=== PATIENT | female | born 1960 | race Two or more races ===

== ENCOUNTER → 2016-12-09 08:38 | Outpatient (CLI) | payer SELFPAY | END | disposition home or self-care (01) | LOC: D.US 12-07 08:00 | DX: K75.9 Inflammatory liver disease, unspecified (principal) ==

== ENCOUNTER 2019-01-01 11:17 | Outpatient (CLI) | payer MEDICARE ==
[~2019-01-01] VITALS: Ht 157.5 cm; Wt 70.0 kg
--- NOTE | ~2019-01-01 | HEMODYNAMI ---
PATIENT:JESSA ATKINS MEDICAL RECORD: [id number] : 60 LOCATION:DEE DEE AyoubCL03 ADMISSION DATE: 01/01/19 Generatedon:01/01/201914:32 Patient name: JESSA ATKINS Patient #: [id number] SSN: [id number] : 1960 Date of study: 01/01/2019 Page: Of Hemodynamic Procedure Report Patient Data Patient Demographics Procedure consent was obtained First Name: JESSA Gender: Female Last Name: WILBERT : 1960 [facility] Initial: Gustavo KEVIN Age: 58 year(s) Patient #: [id number] Race: Other SSN: [id number] Additional ID: [id number] Contact details Address: [address] [place] [address] State: [place] City: [place] Zip code: [address] Admission Admission Data Admission Date: 01/01/2019 Admission Time: 11:17 Arrival Date: 01/01/2019 Arrival Time: 13:00 Admit Source: Other Insurance Payor: Medicare Room #: D.CL03 Lab Results Lab Result Date: 01/01/2019 Lab Result Time: 0:00 Biochemistry Name Units Result Min Max BUN mg/dl 14 --(--*-)-- 7 18 Creatinine mg/dl 0.8 --(-*--)-- 0.6 1.3 eGFR ml/min 78 *-(----)-- 90 120 NONAFRICAN CBC Name Units Result Min Max Hemoglobin g/dl 13.6 --(*---)-- 13.5 17.5 Procedure Procedure Types Cath Procedure Diagnostic Procedure LHC LH w/Coronaries FFR/IVUS FFR Initial Sedation Charges Moderate Sedation up to 15 minutes Procedure Description Procedure Date Procedure Date: 01/01/2019 Procedure Start Time: 14:12 Procedure End Time: 14:25 Procedure Staff Name Function Randal Mata MD Performing Physician Yadira Miller RT Monitor Eleazar Sevilla RT Scrub Cee Astorga RN Nurse Procedure Data Cath Procedure Fluoroscopy Diagnostic fluoroscopy Total fluoroscopy Time: 2.5 time: 2.5 min min Diagnostic fluoroscopy Total fluoroscopy dose: 340 dose: 340 mGy mGy Contrast Material Contrast Material Type Amount (ml) Isovue 300 81 Entry Location Entry Primary Successful Side Size Upsize Upsize Entry Closure Succes sful Closure Location (Fr) 1 (Fr) 2 (Fr) Remarks Device Remarks Femoral Right 5 Fr 6 Fr Exoseal artery Short Estimated blood loss: 5 ml Diagnostic catheters Device Type Used For End Catheter Placement MULTIPACK JL 4.0 5Fr Left Coronary catheter Angiography MULTIPACK 3DRC 5Fr Right Coronary catheter Angiography MULTIPACK Pigtail 5 Fr LV Angiography catheter Procedure Complications No complications Procedure Medications Medication Administration Route Dosage Oxygen NC 2 l/min Lidocaine 2% added to field 20 Heparin Flush Bag added to field 2 bags (1000units/500ml NS) 0.9% NaCl I.V. 100 ml/hr Versed I.V. 1 mg Fentanyl I.V. 50 mcg Heparin Bolus I.V. 3000 units Versed I.V. 1 mg Fentanyl I.V. 25 mcg Hemodynamics Rest HGB: 13.6 (g/dl) Heart Rate: 58 (bpm) Pressure Samples Time Site Value (mmHg) Purpose Heart Use Rate(bpm) 14:16 LV 101/4,4 Snapshot 70 Gradients Valve Time Site Site Mean SEP/DFP Peak To Heart Use 1 2 (mmHg) (sec/min) Peak Rate (mmHg) (bpm) Aortic 14:17 LV AO 73 Snapshots Pre Cath Intra NCS Post Cath Vital Signs Time Heart Resp SPO2 etCO2 NIBP Rhythm Pain Sedation Rate (ipm) (%) (mmHg) (mmHg) Status Level (bpm) 13:54:54 54 31.5 123/66(85) NSR 0 (11) 10(A) , No pain 13:59:04 65 15 98 31.5 107/68(90) NSR 0 (11) 10(A) , No pain 14:03:08 63 18 96 34.5 99/70(77) NSR 0 (11) 10(A) , No pain 14:07:09 67 12 91 36.8 113/67(79) NSR 0 (11) 10(A) , No pain 14:11:15 69 13 93 36.8 95/73(79) NSR 0 (11) 9(A) , No pain 14:15:15 70 17 93 35.3 106/69(81) NSR 0 (11) 9(A) , No pain 14:19:23 70 19 94 34.5 100/60(78) NSR 0 (11) 9(A) , No pain 14:23:23 72 24 95 32.3 110/74(98) NSR 0 (11) 10(A) , No pain 14:29:50 68 31 96 31.5 113/73(91) NSR 0 (11) 10(A) , No pain Medications Time Medication Route Dose Verified Delivered Reason Notes E ffectiveness by by 13:56:25 Oxygen NC 2 Cee Cee used for l/min Rizwan Rizwan street car inspector RN 13:56:36 Lidocaine 2% added 20ml Cee Cee for local to vial Rizwan Rizwan anesthetic field RN RN 13:56:45 Heparin Flush added 2 Cee Cee used for Bag to bags Rizwan Rizwan procedure (1000units/500ml field RN RN NS) 13:56:57 0.9% NaCl I.V. 100 Cee Cee used for ml/hr Rizwan Rizwan street car inspector RN 14:09:59 Versed I.V. 1 mg Randal Cee for [place] Rizwan sedation RN 14:10:07 Fentanyl I.V. 50 Randal Cee for mcg [place] Rizwan sedation RN 14:12:38 Versed I.V. 1 mg Randal Cee for Benton Rizwan sedation MD LEAL 14:13:52 Fentanyl I.V. 25 Randal Cee for mcg Benton Rizwan sedation RN 14:17:26 Heparin Bolus I.V. 3000 Randal Cee verfiied units [facility] with dr. MD LEAL noel Procedure Log Time Note 13:35:44 Eleazar Sevilla RT(R) sent for patient. Start room use. 13:45:21 Diagnostic Cath Status : Elective 13:48:01 Lab Result : Hemoglobin 13.6 g/dl 13:48:01 Lab Result : BUN 14 mg/dl 13:48:01 Lab Result : Creatinine 0.8 mg/dl 13:48:01 Lab Result : eGFR NONAFRICAN 78 ml/min 13:48:42 Procedure Status Elective Heart Cath (OP). 13:48:50 Time tracking: Regular hours (M-F 7:00 - 5:00) 13:48:54 Plan of Care:Hemodynamics will remain stable., Cardiac rhythm will remain stable., Comfort level will be maintained., Respiratory function will remain adequate., Patient/ family verbilizes understanding of procedure., Procedure tolerated without complication., Recovers from procedure without complications.. 13:48:58 Patient received from Pre/Post Procedure Room to CCL 2 Alert and oriented. Tansferred to table in Supine position. 13:49:01 Signed procedure consent form obtained from patient. 13:49:02 Warm blankets applied, and román hugger turned on for patient comfort. 13:49:03 Correct patient and procedure confirmed by team. 13:49:03 ECG and BP/O2 sat monitors applied to patient. 13:50:10 Admit Source: Other 13:50:12 Arrival Date: 01/01/2019 1:00:00 PM 13:50:20 Insurance Payor : Medicare 13:53:40 Vital chart was started 13:55:53 Baseline sample Acquired. 13:55:57 Rhythm: sinus rhythm 13:55:59 Full Disclosure recording started 13:56:02 H&P Date Dictated: 01/01/2019 Within 30 days and on chart., H&P Addendum completed by physician on day of procedure. (MUST COMPLETE FOR ALL OUTPATIENTS). 13:56:04 Pre-procedure instructions explained to patient. 13:56:04 Pre-op teaching completed and patient verbalized understanding. 13:56:05 Family in patients room. 13:56:07 Patient NPO since Midnight. 13:56:09 Is the patient allergic to Iodine/contrast media? No. 13:56:11 Was the patient premedicated? No 13:56:13 Is patient on blood thinner?No 13:56:18 Patient diabetic? No. 13:56:21 Previous problem with sedation/anesthesia? No ? 13:56:23 Snore? No 13:56:24 Sleep apnea? No 13:56:24 Deviated septum? No 13:56:25 Oxygen 2 l/min NC was administered by Cee Astorga RN; used for procedure; 13:56:25 Opens mouth fully? Yes 13:56:26 Sticks out tongue? Yes 13:56:27 Airway obstruction? No ? 13:56:29 Dentures? No ? 13:56:32 Pre procedure: right dorsailis pedis pulse 2+ Normal; easily identifiable; not easily obliterated 13:56:34 Pre procedure: left dorsailis pedis pulse 1+ Palpable, but thready & weak; easily obliterated 13:56:36 Lidocaine 2% 20ml vial added to field was administered by Cee Astorga RN; for local anesthetic; 13:56:41 IV patent on arrival in right forearm with 0.9% NaCl at [facility]. 13:56:43 Lab results completed and on chart. 13:56:45 Heparin Flush Bag (1000units/500ml NS) 2 bags added to field was administered by Cee Astorga RN; used for procedure; 13:56:48 Right groin area was prepped with chlora-prep and draped in sterile fashion 13:56:49 Alarms reviewed by R. N. 13:56:49 Sharps counted by scrub and verified by R.N. 13:56:55 2) 60-89 Mildly reduced kidney function, and other findings (as for stage 1) point to kidney disease. 13:56:57 0.9% NaCl 100 ml/hr I.V. was administered by Cee Astorga RN; used for procedure; 13:57:00 Maximum allowable contrast dose (3.7 X eGFR X 0.75)216 ml. 13:57:03 Use device set Femoral Dx 13:57:04 ACIST Syringe (63920) opened to sterile field. 13:57:04 Bag Decanter (2002) opened to sterile field. 13:57:04 Medline Cath Pack ([id number]) opened to sterile field. 13:57:06 ACIST Hand Control (69733) opened to sterile field. 13:57:06 ACIST Manifold (51790) opened to sterile field. 13:57:06 DIAGNOSTIC Multipack 5Fr catheter set (AI0426) opened to sterile field. 13:57:07 Tegaderm 4 x 4 (1626W) opened to sterile field. 13:57:08 SHEATH 5FR [place] (BXP731) opened to sterile field. 13:57:08 EMERALD Guide Wire (339-518) opened to sterile field. 14:06:28 Zero performed for pressure channel P1 14:07:15 Physician arrived 14::16 --------ALL STOP TIME OUT------ 14:07:16 Final Timeout: patient, procedure, and site verified with staff and physician. All members of the team are in agreement. 14:07:18 Right groin site verified by team. 14:07:22 Fire Safety Assessment: A--An alcohol-based skin anteseptic being used preoperatively., C--Open oxygen or nitrous oxide is being used., D--An ESU, laser, or fiber-optic light is being used. 14::25 Physical assessment completed. ASA score P 2 - A patient with mild systemic disease as per Randal Mata MD. 14::29 Sedation plan: IV Moderate Sedation Medication:Versed, Fentanyl 14:09:59 Versed 1 mg I.V. was administered by Cee Astorga RN; for sedation; 14:10:07 Fentanyl 50 mcg I.V. was administered by Cee Astorga RN; for sedation; 14:12:19 Procedure started. 14:12:22 Local anesthetic to right femoral artery with Lidocaine 2% by Randal Mata MD.INITIAL ACCESS ONLY 14:12:36 A 5 Fr sheath was inserted into the Right Femoral artery 14:12:38 Versed 1 mg I.V. was administered by Cee Astorga RN; for sedation; 14:12:45 A MULTIPACK JL 4.0 5Fr catheter was advanced over the wire and used for Left Coronary Angiography. 14:13:52 Fentanyl 25 mcg I.V. was administered by Cee Astorga RN; for sedation; 14:14:01 Injector settings: Ml/sec: 3, Volume: 6, 14:14:39 Catheter removed. 14:14:45 A MULTIPACK 3DRC 5Fr catheter was advanced over the wire and used for Right Coronary Angiography. 14:15:02 RCA angiography performed. 14:15:04 Injector settings: Ml/sec: 3, Volume: 6, 14:16:02 Catheter removed. 14:16:07 A MULTIPACK Pigtail 5 Fr catheter was advanced over the wire and used for LV Angiography. 14:16:39 LV hemodynamics recorded. 14:16:40 LV gram done using LEE 14:16:43 Injector settings: Ml/sec: 5, Volume: 15, 14:17:12 EF : 55 % 14:17:18 ACCDominant side:Right 14:17:18 Catheter removed. 14:17:19 Proceeding to intervention. 14:17:26 Heparin Bolus 3000 units I.V. was administered by Cee Astorga RN; ; verfiied with dr. mata 14:17:42 [place] Verrata Plus pressure wire (31182M) opened to sterile field. 14:17:43 INFLATOR Merit BasixCompak (BX5121) opened to sterile field. 14:17:44 SHEATH 6FR [place] (TXV781) opened to sterile field. 14:18:08 GUIDE 6FR XB 3.5 catheter ([id number]) opened to sterile field. 14:18:17 Sheath upsized to a 6 Fr Short. 14:18:26 6 Fr xb 3.5 guide catheter was inserted over the wire 14:18:32 FFR/IFR wire advanced. 14:18:46 Baseline FFR 1. 14:21:19 Wire advanced across lesion. 14:23:00 pLAD lesion measured at 0.95 with IFR 14:23:26 Wire removed. 14:23:27 Guide catheter removed. 14:24:08 EXOSEAL 6Fr (EX600) opened to sterile field. 14:24:24 Sheath removed intact; hemostasis achieved with Exoseal to the Right Femoral artery. 14:24:26 Procedure ended.(Physican Out) 14:24:45 Fluoroscopy time 02.50 minutes. 14:24:50 Fluoroscopy dose: 340 mGy 14:24:50 Flurop Dose total: 340 14:24:56 Dose Area Product 66278 mGy/cm. 14:24:59 Contrast amount:Isovue 300 81ml. 14:25:01 Sharps counted by scrub and verified by R.N. 14:25:03 Insertion/operative site no bleeding no hematoma. 14:25:07 Post-op/insertion site Right Femoral artery dressed using a 4 x 4 and Tegaderm. 14:25:08 Post Procedure Pulses reassessed and unchanged 14:25:11 Post procedure rhythm: unchanged. 14:25:15 Estimated blood loss: 5 ml 14:25:17 Post procedure instruction explained to patient.Patient verbalizes understanding. 14:25:17 Patient needs reinforcement of post procedure teaching. 14:25:30 Procedure type changed to Cath procedure, Diagnostic procedure, LHC, LHC w/Coronaries, FFR/IVUS, FFR Initial, Sedation Charges, Moderate Sedation up to 15 minutes 14:25:31 Procedure and supply charges have been captured, reviewed, submitted and are correct. 14:25:36 Procedure Complication : No complications 14:25:38 Vital chart was stopped 14:25:39 See physician's report for complete and final results. 14:25:45 Report given to Pre/Post Procedure Room. 14:25:47 Patient transfered to Pre/Post Procedure Room with Stretcher. 14:25:49 Procedure ended. 14:25:49 Full Disclosure recording stopped 14:25:52 End room use (Document Last) Device Usage Item Name Manufacture Quantity Catalog Hospital Part Current Minima l Lot# / Number Charge Number Stock Stock Serial# Code ACIST Acist 1 71505 131269 576690 707398 20 Syringe Medical (45080) Systems Inc Bag Microtek 1 665651 37920 496882 5 Decanter Medical Inc. () Medline Medline 1 [id number] 513575 97913 201293 5 Cath Pack ([id number]) ACIST Hand Acist 1 63051 201252 274245 484819 5 Control Medical (86449) Systems Inc ACIST Acist 1 65849 469869 675807 656277 5 Manifold Medical (30651) Systems Inc DIAGNOSTIC Cardinal 1 QM2219 432963 95655 044705 30 Multipack Health 5Fr catheter set (IN9573) Tegaderm 4 3M 1 1626W 573838 132862 355022 5 x 4 (1626W) SHEATH 5FR Terumo 1 XEQ985 528560 934793 205742 5 [place] (OMK397) EMERALD Cardinal 1 502-455 228447 990637 721545 5 Guide Wire [facility] (502-455) MULTIPACK Cardinal 1 749220 5 JL 4.0 5Fr Health catheter MULTIPACK Cardinal 1 583693 5 3DRC 5Fr Health catheter MULTIPACK Cardinal 1 007114 5 Pigtail 5 Health Fr catheter [place] 1 92534X 833105 758281628 288563 5 Verrata Plus pressure wire (88961P) INFLATOR Merit 1 IJ8473 758072 541258 541079 15 [facility] Medical BasixCompak (UC2911) SHEATH 6FR Terumo 1 NSV190 712745 624893 769387 40 [place] (YTS735) GUIDE 6FR Cardinal 1 19462686 229391 989281 359804 2 XB 3.5 Health catheter (82456937) EXOSEAL 6Fr Cardinal 1 EX600 878584 883932 351219 10 (EX600) Health Signature Audit [place] Stage Time Signature Unsigned Intra-Procedure 01/01/2019 Yadira Miller 2:30:50 PM RT(R) Intra-Procedure 01/01/2019 Cee 2:31:48 PM Rizwan RN Intra-Procedure 01/01/2019 Randal Poole 2:32:[address] [facility] [address] [place] [address]
[2019-01-01 12:07] VITALS: BP 125/62; Ht 157.5 cm; Wt 70.0 kg
[2019-01-01] MEDS ORDERED: LEVOTHYROXINE75 MCG PO (12:09)
[2019-01-01] MEDS ORDERED: ULTRAM50 MG PO (12:10)
[2019-01-01] MEDS ORDERED: OMEPRAZOLE20 M1 PO (12:10)
[2019-01-01] MEDS ORDERED: MYSOLINE 50 MG50 MG PO (12:11)
[2019-01-01] MEDS ORDERED: CELEXA10 MG PO (12:11)
[2019-01-01] MEDS ORDERED: NITROQUICK0.4 MG SL (12:12)
[2019-01-01 12:36] LABS: BASOPHILS 0.4 % (0-2); EOSINOPHILS 1.8 % (0-7); HEMATOCRIT 40.6 % (36.0-48.0); HEMOGLOBIN 13.6 g/dL (12-16); IMMATURE GRANULOCYTES 0.2 % (0-5); LYMPHOCYTES 44.6 % (15-50); MCH 28.8 pg (26.0-34.0); MCHC 33.5 g/dL (31.0-37.0); MEAN PLATELET VOLUME 11.3 fL (7.4-10.4); MONOCYTES 6.3 % (2-11); NEUTROPHILS 46.7 % (40-80); PLATELET COUNT 216 10x3/uL (130-400); RBC 4.72 10x6/uL (4.00-5.40); RDW 13.7 % (11.5-14.5)
[2019-01-01 12:48] LABS: ALT (SGPT) 23 U/L (10-68); CALC OSMOLALITY 281 mosm/kg (275-300); CALCIUM 9.1 mg/dL (8.5-10.1); CARBON DIOXIDE 26.8 mmol/L (21.0-32.0); CHLORIDE - SERUM 106 mmol/L (98-107); CHOL - HDL RATIO 7.7 ratio (2.3-4.1); CHOLESTEROL, TOTAL 222 mg/dL (0-200); CREATININE - SERUM 0.8 mg/dL (0.6-1.3); GLUCOSE 97 mg/dL (74-106); HDL CHOLESTEROL 29 mg/dL (32-96); LDL CHOLESTEROL 149 mg/dL (0-100); LDL-HDL RATIO 5.1 ratio (1.5-3.5); POTASSIUM - SERUM 3.7 mmol/L (3.5-5.1); SODIUM 141 mmol/L (136-145); TRIGLYCERIDE 220 mg/dL (30-200); UREA NITROGEN 14 mg/dL (7-18); eGFR NON AFRICAN AMERICAN 78 mL/min (90-120)
--- NOTE | 2019-01-01 14:51 | NUR ---
PT SLEEPING, RESP WITH EASE ON O2 AT 2LPM VIA NC. SINUS DANIEL AT 57. DRESSING IS CDI TO RIGHT GROIN, AREA IS SOFT AND NONTENDER. PEDAL PULSES PALPABLE. HOB IS FLAT. DR SILVA HAS COME TO ROUND ON PT, NO FAMILY AT BEDSIDE OR WAITING AREA. CALL LIGHT IS IN REACH.
--- NOTE | 2019-01-01 15:06 | NUR ---
AT BEDISDE, DRESSING CDI, PEDAL PULSES PALPABLE. VSS, HOB IS FLAT.
--- NOTE | 2019-01-01 15:40 | NUR ---
PT MENDEZ SIPS OF LEMON KOI SODA WITH NO C/O NAUSEA. DRESSING IS CDI TO RIGHT GROIN, AREA IS SOFT AND NONTENDER. PEDAL PULSES PALPABLE. HOB IS FLAT. VSS, AT BEDSIDE.
--- NOTE | 2019-01-01 16:11 | NUR ---
DRESSING CDI TO RIGHT GROIN, AREA IS SOFT WITH NO HEMATOMA NOTED. PEDAL PULSES PALPABLE. HOB IS FLAT, CALL LIGHT IN REACH. SINUS DANIEL AT 56, BP IS 108/69.
--- NOTE | 2019-01-01 16:40 | NUR ---
PT SLEEPING, AWAKENS EASILY, DRESSING IS CDI, PULSES 2+, VSS, DENIES ANY C/O AT THIS TIME.
--- NOTE | 2019-01-01 17:31 | NUR ---
PT VOIDED APPROX 600 CC CLEAR YELLOW URINE TO BEDPAN. IS ALERT AND DENIES ANY C/O. DRESSING IS CDI TO RIGHT GROIN, AREA IS SOFT AND NONTENDER. PEDAL PULSES PALPABLE. HOB ELEVATED 30 DEGREES AND SANWICH AND PO FLUIDS AT BEDSIDE.
--- NOTE | 2019-01-01 17:52 | NUR ---
HOB FULLY ELEVATED, DRESSING REMAINS CDI, PEDAL PULSES 2+. PT IS ALERT AND DENIES ANY C/O. NSR, DENIES ANY C/O CHEST PAIN. DC INSTRUCTIONS REVIEWED WITH PT AND WHO VERBALIZE UNDERSTANDING. WRITTEN COPIES PROVIDED.
--- NOTE | 2019-01-01 18:08 | NUR ---
1806 IV HAS BEEN DC'D WTIH CATH INTACT AND PT IS DRESSED FOR DC TO HOME. PT IS ALERT AND DENIES ANY C/O. PT ESCORTED TO PRIVATE AUTO VIA WC BY NURSE WITH SPOUSE DRIVING HER HOME. PT HAS ALL PERSONAL BELONGINGS AND DC INSTRUCTIONS UPON DISCHARGE.
--- NOTE | 2019-01-02 13:08 | OP ---
PATIENT NAME: JESSA ATKINS MEDICAL RECORD: [id number] :60 LOCATION:D.CAT ADMISSION DATE: SURGEON: KYLIE SILVA MD DATE OF OPERATION: 01/01/2019 PROCEDURE: Left heart catheterization, selective coronary angiography, right femoral artery approach. CATHETERS: A 5-Sinhala sheath, 5/4 left and right Hetal, 5/4 pig. The procedure was well tolerated. The patient was returned to owen. Sheath was removed. ExoSeal device was placed. FINDINGS: Left ventriculography in 30-degree LEE view. Normal wall motion and normal systolic function. TRANSINT:[id number] Voice Confirmation ID: [id number] DOCUMENT ID: [id number] KYLIE SILVA MD at 1308 CC: [id number] DICTATION DATE: 01/01/19 1433 DIRECTOR OF CONTENT AND PROGRAMMING: 01/02/19 0047 DEP CLI 01/01/19 [place] [id number] [place] [address]
--- NOTE | 2019-01-02 13:08 | OP ---
PATIENT NAME: JESSA ATKINS MEDICAL RECORD: [id number] :60 LOCATION:D.CAT ADMISSION DATE: SURGEON: KYLIE SILVA MD DATE OF OPERATION: 01/01/2019 PROCEDURE: Left heart catheterization, selective coronary angiography plus IFR wire. FINDINGS: Left ventriculography in 30-degree LEE view: Normal wall motion. Normal systolic function. CORONARY ANATOMY: LEFT MAIN: Left main is free of disease. LAD: Has an area of aneurysmal dilatation with questionable stenotic post-aneurysmal area. CIRCUMFLEX: Free of disease. RIGHT CORONARY ARTERY: Free of disease. IMPRESSION: Questionable area of significant stenosis, postaneurysmal dilatation. PLAN: For IFR wire. DESCRIPTION OF THE PROCEDURE: #5 Ukrainian sheath was exchanged for 6-Ukrainian sheath. An XB LAD guide catheter placed in the left coronary ostium. The patient was given 4000 of IV heparin. The IFR wire was then placed distal to the lesion and IFR showed a result of 0.95 consistent with no significant stenosis. IMPRESSION: Normal LV systolic function. No significant stenosis of the LAD via IFR, no angiographic evidence of stenosis at all in the circumflex and right, noncardiac cause of chest pain. TRANSINT:[id number] Voice Confirmation ID: [id number] DOCUMENT ID: [id number] KYLIE SILVA MD at 1308 CC: [id number] DICTATION DATE: 01/01/19 1435 MACHINE ETCHER: 01/02/19 0106 DEP CLI 01/01/19 [place] [id number] [place] [id number]
== END 2019-01-01 18:07 | disposition home or self-care (01) ==
LOC: D.CATH 11:17 → D.CLR 11:17 → D.CATH 13:30
PROVIDERS: ATTEND Internal Medicine Interventional Cardiology
DX: I20.9 Angina pectoris, unspecified (principal); R06.00 Dyspnea, unspecified; Z01.812 Encounter for preprocedural laboratory examination